=== PATIENT | female | born 1950 | race Caucasian/White ===

== ENCOUNTER 2016-06-20 06:44 | Emergency (ER) | payer MEDICARE, OTHER ==
--- NOTE | ~2016-06-20 | CT71 ---
[facility] A Service [facility] RADIOLOGY TEXT RESULTS PATIENT: LAKEISHA MARS LOCATION: [facility] : 51 UNIT #: [id number] AGE: [address]: Gianni Leo DO SEX: F ORDER DR: [id number] [facility] [address] [place], [place] [address] [id number] E MR#: [id number] Acc #: [id number] NAME: LAKEISHA MARS : 1950 SEX: F STUDY DATE/TIME: 06/20/2016 5:31 UNIT: [facility] ROOM: STUDY DESCRIPTION: CT Head Wo Contrast Attending Physician: Gianni Leo D.O. Ordering Physician: Gianni Leo D.O. Primary Care Physician: Sia Moore M.D. MEDICAL IMAGING REPORT This report is preliminary unless electronic signature is present EXAM Head CT no contrast 06/20/2016 INDICATION 66-year-old female fell this morning, posterior headache, shaking on the left side, short of air, fallen multiple times this week. TECHNIQUE Noncontrast CT of the brain was performed. This CT examination was performed with one or more of the following radiation dose reduction techniques: automatic exposure control, adjustment of mA and/or kV according to patient size, and iterative reconstruction. COMPARISON 09/26/2014. FINDINGS There is motion degradation. Images were repeated. This was the best study possible. Sulci and ventricles demonstrate mild generalized atrophy but are otherwise unremarkable. No midline shift. There is no evidence of acute intracranial hemorrhage. There is no mass, mass effect or edema to suggest acute infarct. No extraaxial fluid collections are identified. The globes are intact. The bones are intact. There is xcvbq-bk-huavnjb maxillary sinus disease bilaterally. Mild chronic ischemic changes in the periventricular white matter. IMPRESSION 1. Motion degraded study demonstrates atrophy and chronic ischemic changes but no clearly acute intracranial process. No evidence of acute intracranial hemorrhage. 2. Qdhwq-vw-mxlwoiu maxillary sinus disease. [facility] A Service [facility] RADIOLOGY TEXT RESULTS PATIENT: LAKEISHA MARS LOCATION: [facility] : 51 UNIT #: [id number] AGE: [address]: Gianni Leo DO SEX: F ORDER DR: Dictated by... Rom Burk M.D. THIS IS AN ELECTRONICALLY VERIFIED REPORT Rom Burk M.D. at 06/20/2016 9:55 PM Abby TD: 06/20/2016 08:43 JOB #: [id number] MEDICAL IMAGING REPORT Page 1 of 1 COPY
--- NOTE | ~2016-06-20 | EKG ---
PATIENT: LAKEISHA MARS UNIT #: [id number] Ventricular Rate: 84 BPM Atrial Rate: 84 BPM P-R Interval: 158 ms QRS Duration: 102 ms Q-T Interval: 364 ms QTC Calculation(Bezet): 430 ms P [place]: 73 degrees Calculated R [place]: -38 degrees Calculated T [place]: -9 degrees Diagnosis Line: Normal sinus rhythm Diagnosis Line: Left axis deviation Diagnosis Line: Incomplete right bundle branch block Diagnosis Line: Minimal voltage criteria for LVH, may be normal Diagnosis Line: variant Diagnosis Line: Anteroseptal infarct , age undetermined Diagnosis Line: Abnormal ECG Diagnosis Line: When compared with ECG of 26-SEP-2014 10:51, Diagnosis Line: No significant change was found Diagnosis Line: Confirmed by BANDAR BUITRAGO MD ([id number]) on 06/20/2016 Diagnosis Line: 9:21:00 PM INTERPRETING MD: IFTIKHAR EASTON
[2016-06-20 05:07] LABS: URINE SOURCE CLEAN CATCH
[2016-06-20 05:14] LABS: BASOPHIL% 0.5 % (0-2.5); EOSINOPHIL# 0.1 X10e3 (0-0.7); EOSINOPHIL% 1.3 % (0.0-7.0); HEMATOCRIT 36.6 % (35.0-45.0); LYMPHOCYTE# 1.7 X10e3 (1.0-3.5); LYMPHOCYTE% 25.3 % (17.0-45.0); MEAN CELL VOLUME 90.7 FL (83-96); MEAN CORPUSCULAR HEMOGLOBIN 29.7 PG (28-34); MEAN CORPUSCULAR HGB CONC 32.8 g/dL (30-36); NEUTROPHIL# 3.9 X10e3 (1.5-7.1); NEUTROPHIL% 57.9 % (40-75); PLATELET COUNT 148 X10e3 (140-420); RED BLOOD COUNT 4.03 X10e (3.90-5.30); RED CELL DISTRIBUTION WIDTH 13.8 % (11.0-15.5); WHITE BLOOD COUNT 6.8 X10e3 (4.0-10.5)
[2016-06-20 05:17] LABS: DIFF IND NO
[2016-06-20 05:30] LABS: PROTHROMBIN TIME (PATIENT) 10.7 SECONDS (9.6-11.5)
[2016-06-20 05:33] LABS: URINE APPEARANCE CLEAR; URINE BILIRUBIN NEG (NEG); URINE BLOOD NEG (NEG); URINE COLOR YELLOW; URINE GLUCOSE NEG (NEG); URINE KETONE NEG (NEG); URINE LEUKOCYTE ESTERASE NEG (NEG); URINE NITRATE NEG (NEG); URINE PH 6.5 (5-8); URINE PROTEIN NEG (NEG); URINE SPECIFIC GRAVITY 1.004 (1.003-1.035); URINE UROBILINOGEN 0.2 MG/DL (NEG)
[2016-06-20 05:44] LABS: CULTURE INDICATED? NO
[2016-06-20 05:49] LABS: ALBUMIN SERUM 3.4 g/dL (3.5-5.0); ALKALINE PHOSPHATASE 87 U/L (32-92); ALT (SGPT) 17 U/L (10-40); AST (SGOT) 26 U/L (10-42); BILIRUBIN,TOTAL 0.5 mg/dL (0.2-2.0); BLOOD UREA NITROGEN 23 mg/dL (9-23); BUN/CREATININE RATIO 16.42; CALCIUM SERUM 9.2 mg/dL (8.4-10.2); CARBON DIOXIDE 26 mmol/L (22-31); CHLORIDE 90 mmol/L (100-111); CREATININE SERUM 1.4 mg/dL (0.6-1.4); GLOM FILT RATE Estimated 39.3 mL/min (>60); GLUCOSE FASTING 97 mg/dL (70-110); POTASSIUM 4.3 mmol/L (3.5-5.1); PROTEIN TOTAL SERUM 7.2 g/dL (6.0-8.3)
[2016-06-20 05:51] LABS: BILIRUBIN, DIRECT <0.1 mg/dL (0.0-0.2); BILIRUBIN,INDIRECT 0.4 mg/dL (0.0-0.9); SODIUM 125 mmol/L (135-145)
[2016-06-20 05:52] LABS: POC - CKMB 8.7 ng/mL (0.0-7.9); POC - TROPONIN <0.05 ng/mL (<=0.05)
[2016-06-20 05:57] LABS: AMPHETAMINE NEG (NEG); BARBITURATES NEG (NEG); BENZODIAZEPINES NEG (NEG); COCAINE NEG (NEG); MARIJUANA NEG (NEG); OPIATES NEG (NEG); TRICYCLIC ANTIDEPRESSANTS NEG (NEG); U METHADONE NEG (NEG)
[~2016-06-20 06:44] MED LIST: ALBUTEROL17 GM INH; ALEVE220 M1 PO; AMARYL PO; AMARYL2 MG PO; AMBIEN PO; ANEXSIA 7.5/3251 TA1 PO; ASPIRIN81 MG PO; AUGMENTIN PO; AUGMENTIN875 MG PO; BACLOFEN10 MG PO; BAYER CHEWABLE81 MG PO; BUPROPION HCL150 M3 PO; CARBIDOPA-LEVO1 TAB PO; CRESTOR PO; CRESTOR40 MG PO; DECLOMYCIN300 MG; DEPAKOTE; FLEXERIL PO; GLIMEPIRIDE1 M1 PO; LASIX20 MG PO; LIDODERM30 EA TOP; LISINOPRIL PO; LORTAB 7.5-5001 TAB PO; MAGNESIUM30 MG PO; MAGNESIUM400 MG PO; MAGNESIUM500 MG PO; MELOXICAM15 MG PO; METOPROLOL TAR25 MG PO; METOPROLOL TART25 MG PO; MOBIC PO; NEURONTIN PO; NEURONTIN600 MG PO; NEXIUM PO; PHENERGAN PO; PRILOSEC PO; PROMETHAZINE HC25 MG PO; PROTONIX PO; QUINAM; RISPERDAL3 MG PO; RISPERIDONE PO; RISPERIDONE3 MG PO; SPIRIVA18 MCG INH; SYMBICORT INH; SYNTHROID PO; SYNTHROID75 MCG PO; TIZANIDINE HCL4 M1 PO; TOMOXIFIN; VALPROIC ACID250 M1 PO; VALPROIC ACID250 MG PO; VICODIN ES 7.51 EAC1 PO; VITAMIN D-32000 UNIT PO; ZANAFLEX PO; ZOCOR PO
== END 2016-06-20 06:49 | disposition left against medical advice (07) ==
LOC: CED 06:44
PROVIDERS: Emergency Medicine
DX: E87.1 Hypo-osmolality and hyponatremia (principal); E03.9 Hypothyroidism, unspecified; J44.9 Chronic obstructive pulmonary disease, unspecified; I10 Essential (primary) hypertension; F31.9 Bipolar disorder, unspecified; Z98.890 Other specified postprocedural states; Z88.8 Allergy status to other drugs, medicaments and biological substances; Z79.899 Other long term (current) drug therapy; W18.30XA Fall on same level, unspecified, initial encounter; Y92.009 Unspecified place in unspecified non-institutional (private) residence as the place of occurrence of the external cause
CPT/HCPCS: 36415; 70450; 80048; 80076; 80307; 81003; 82553; 84484; 85025; 85610; 85730; 93005; 99284

== ENCOUNTER → 2016-07-26 | Outpatient (CLI) | payer MEDICARE, OTHER ==
--- NOTE | ~2016-07-26 | CR97 ---
[facility] A Service of [facility] RADIOLOGY TEXT RESULTS PATIENT: LAKEISHA MARS LOCATION: [facility] : 51 UNIT #: [id number] AGE: [address]: Trever Castellanos MD SEX: F ORDER DR: [id number] [facility] [address] [place], [place] [address] [id number] O MR#: [id number] Acc #: [id number] NAME: LAKEISHA MARS : 1950 SEX: F STUDY DATE/TIME: 07/26/2016 10:00 UNIT: [facility] ROOM: STUDY DESCRIPTION: CR Esophagram Attending Physician: Trever Castellanos M.D. Referring Physician: Trever Castellanos M.D. Ordering Physician: Trever Castellanos M.D. Primary Care Physician: Sia Moore M.D. MEDICAL IMAGING REPORT This report is preliminary unless electronic signature is present REVISED REPORT SEE ADDENDUM EXAM Esophagram single column 07/26/2016. CLINICAL HISTORY 2-month history of dysphasia, particularly pills. FINDINGS There is no esophageal stricture, mucosal fold thickening, mass or mass effect. Peristalsis is intermittently effective, with occasional true propulsive peristaltic waves and occasional non propulsive muscular contraction. There is no hiatal hernia. IMPRESSION No mass, stricture, or fold thickening, but intermittently propulsive and non propulsive esophageal contractions are seen. Dictated by... Omar Alston M.D. THIS IS AN ELECTRONICALLY VERIFIED REPORT Omar Alston M.D. at 07/30/2016 10:33 AM TEV/bd TD: 07/27/2016 12:23 JOB #: [id number] ADDENDUM [facility] A Service [facility] RADIOLOGY TEXT RESULTS PATIENT: LAKEISHA MARS LOCATION: [facility] : 51 UNIT #: [id number] AGE: [address]: Trever Castellanos MD SEX: F ORDER DR: Total fluoro time 1.4 minutes and a total of 10 fluoroscopic spot images obtained. Dictated by... Omar Alston M.D. THIS IS AN ELECTRONICALLY VERIFIED REPORT Omar Alston M.D. at 08/02/2016 3:59 PM TEV/ignacio TD: 07/27/2016 12:30 JOB #: [id number] CC: Amanda/vanda Please Delete MEDICAL IMAGING REPORT Page 1 of 1 COPY
== END | disposition home or self-care (01) ==
LOC: CRAD 09:14
DX: R13.10 Dysphagia, unspecified (principal)
CPT/HCPCS: 74220

== ENCOUNTER → 2016-10-05 | Outpatient (CLI) | payer MEDICARE, OTHER ==
--- NOTE | ~2016-10-05 | CT71 ---
[facility] A Service of [facility] RADIOLOGY TEXT RESULTS PATIENT: LAKEISHA MARS LOCATION: [facility] : 52 UNIT #: [id number] AGE: [address]: Sia Moore MD SEX: F ORDER DR: [id number] [facility] [address] [place], [place] [address] [id number] O MR#: [id number] Acc #: [id number] NAME: LAKEISHA MARS : 1950 SEX: F STUDY DATE/TIME: 10/05/2016 14:25 UNIT: [facility] ROOM: STUDY DESCRIPTION: CT Head Wo Contrast Attending Physician: Sia Moore M.D. Referring Physician: Sia Moore M.D. Ordering Physician: Sia Moore M.D. Primary Care Physician: Sia Moore M.D. MEDICAL IMAGING REPORT This report is preliminary unless electronic signature is present EXAM Head CT no contrast 10/05/2016 PROCEDURE Axial unenhanced head CT. This CT exam was performed with one or more of the following radiation dose reduction techniques: automatic exposure control, adjustment of mA and/or kV according to patient size, and iterative reconstruction. COMPARISON STUDIES Prior head CT dated 06/20/2016 CLINICAL HISTORY Severe headache for several years and multiple falls. Headaches have been worse for the past several days. FINDINGS There is no intracranial hemorrhage. There is no hydrocephalus or extraaxial fluid collection. There is minimal age appropriate nonspecific white matter change but the brain is otherwise normal. There are bilateral maxillary air-fluid levels as well as bony thickening suggesting acute on chronic maxillary sinusitis but there is no bone erosion or destruction. IMPRESSION 1. In addition to chronic changes in both maxillary sinuses there are bilateral maxillary air-fluid levels suggesting acute sinusitis. There is no bone erosion or destruction. 2. The brain itself is normal. There is some slight nonspecific white matter change but not greater than expected for age and not changed [facility] A Service [facility] RADIOLOGY TEXT RESULTS PATIENT: LAKEISHA MARS LOCATION: [facility] : 52 UNIT #: [id number] AGE: [address]: Sia Moore MD SEX: F ORDER DR: since 06/20/2016. Dictated by... Omar Alston M.D. THIS IS AN ELECTRONICALLY VERIFIED REPORT Omar Alston M.D. at 10/10/2016 10:04 AM HORTENCIA/kanika TD: 10/05/2016 17:50 JOB #: [id number] MEDICAL IMAGING REPORT Page 1 of 1 COPY
[2016-10-05 15:26] LABS: POC - CREATININE 1.34 mg/dL (0.44-1.03)
== END | disposition home or self-care (01) ==
LOC: CCAT 13:39
PROVIDERS: Family Medicine
DX: R51 Headache (principal)
CPT/HCPCS: 70450; 82565